=== PATIENT | female | born 1960 | race Caucasian/White ===

== ENCOUNTER → 2017-11-04 | Outpatient (CLI) | payer MEDICARE, MEDICAID ==
[2016-12-04 09:43] VITALS: BMI 32.0
[~2017-11-04] MED LIST: ALBU1.257 IH; ALPR-434 PO; AMLO-104 PO; AMLO-99 PO; AMOX-559 PO; B1/B1TAB PO; BENZ200C15 PO; BUDE10.2 INH; CEPH500T7 PO; CLO10 MT; CODE118S5 PO; CYCL10TA29 PO; ENOX100D5 SQ; ESOM40CA42 PO; FENT-19 TD; FENT-89 TD; FLUT1DIS28 IH; FOLI-68 PO; FURO-45 PO; HYDR-4305 PO; HYDR-4309 PO; HYDR-5517 PO; HYDR2TAB74 PO; IPRA3AMP21 IH; IPRA4AER IH; LEVO-85 PO; LISI20TA29 PO; NICO-218 TD; ONDA4TAB PO; OXYC-857 PO; OXYGENHOME INH; POTA-23 PO; PRAM1TAB22 PO; PRED20TA6 PO; PROM-110 PO; RIV10 PO; RIVA15TA PO; RIVA20TA PO; SUCR1ORA17 PO; TEMA7.5C14 PO; TRAZ-156 PO; TRIA-204 PO; WARF-1 PO; xarelto PO
--- NOTE | 2017-11-05 20:16 | RADIOLOGY IMAGING REPORT ---
[place] [facility] [place] NAME: DEBBIE VANG : [id number] MR: [id number] V: [id number] EXAM DATE: ORDERING PHYSICIAN: SHERIDAN SPANGLER TECHNOLOGIST: Keysha Vargas EXAMINATION:TWO-DIMENSIONAL ECHOCARDIOGRAPH REASON:Exertional Dyspnea 2D Measurements (normal values in centimeters) LV endLV endRV endVent.LV PostAorticLeftPercent DiastolicSystolicDiastolicSeptumWallRootAtriumShortening (3.5-5.7)(0.9-2.6)(0.6-1.1)(0.6-1.1)(2.0-3.7)(1.9-4.0)(25-35%) [id number] STROKE VOLUME: 42 ml ESTIMATED EJECTION FRACTION:64% PARASTERNAL LONG AXIS: Overall left ventricular function appears to be normal. Right ventricular function also appears to be normal. The TAPSE is measured at 2.1. No wall motion abnormalities are noted. Minimal aortic sclerosis is noted. Color examination of the valves in this view is unremarkable. PARASTERNAL SHORT AXIS: Overall left ventricular function is normal. No wall motion abnormalities are noted. The aortic valve is trileaflet in configuration and appears to open normally with minimal aortic sclerosis. No stenosis is noted. Color examination of the pulmonic valve is unremarkable. Color examination of the aortic valve is unremarkable. Color examination of the tricuspid valve revealed a trace of tricuspid insufficiency. APICAL FOUR AND TWO CHAMBER: Normal left ventricular ejection fraction. Chamber sizes all appear to be normal. The aortic valve area is measured within normal ranges at 2.5cm2. Mitral valve area is measured within normal ranges at 2.8cm2. Left atrial and right atrial volumes are measured within normal ranges at 20 and 16ml/m2. Trace of mitral insufficiency is noted. Trace of tricuspid insufficiency is noted. The tricuspid regurgitation Vmax is measured at 1.43m/sec. SUBCOSTAL VIEW: No pericardial effusion was noted. No atrioseptal or ventriculoseptal defects were appreciated but the view was somewhat technically difficult. Doppler examination of the mitral valve in diastole does reveal a normal pattern but there is reversal with Valsalva maneuver medial and lateral E prime velocities are mildly decreased. IVC is normal in size. OVERALL IMPRESSION: 1. Normal left ventricular ejection fraction of 64% with a Grade 1-2/4 decrease in diastolic function. 2. Normal chamber sizes. 3. A trileaflet aortic valve with mild aortic sclerosis but no stenosis and no insufficiency was noted. 4. A trace of mitral, tricuspid insufficiency with estimated right ventricular systolic pressures within normal ranges at 16mm Hg. No other abnormalities were noted. Dictated by: Esvin Phipps M.D. on 11/04/2017 at 20:15 Transcribed by: MICHELLE on 11/05/2017 at 15:40 Approved by: Esvin Phipps M.D. on 11/05/2017 at 20:15 [facility]
== END ==
LOC: US 01:29
PROVIDERS: ATTEND Internal Medicine Cardiovascular Disease
DX: I35.8 Other nonrheumatic aortic valve disorders (principal); I34.0 Nonrheumatic mitral (valve) insufficiency; I07.1 Rheumatic tricuspid insufficiency
CPT/HCPCS: 93306

== ENCOUNTER → 2017-11-26 | Outpatient (CLI) | payer MEDICARE, MEDICAID ==
[2016-12-04 09:43] VITALS: BMI 32.0
--- NOTE | 2017-11-26 13:38 | RADIOLOGY IMAGING REPORT ---
FACILITY: [facility] - [place] PATIENT NAME: Cecille Breen : 1960 MR: [id number] V: [id number] EXAM DATE: ORDERING PHYSICIAN: [facility] TECHNOLOGIST: Location: [facility] Patient: Cecille Breen : 1960 Visit/Account:[id number] Date of Sevice: 11/26/2017 LUMBAR SPINE COMP W/FLEX/EXT History: Chronic low back pain. Comparison study: None. Findings: There has been posterior fusion extending from L2 to L5 with bilateral metallic rods and b ilateral pedicle screws at each level. There has been intradiscal fusion at L2-3, L3-4 and L4-5. Th ere is residual spondylolisthesis at L3-4. There is been a laminectomy at L3 and L4. Discogenic degenerative changes above the multilevel fusion are most prominent at L1-2. There is a [employer] IVC filter that appears to lie in an infrarenal location. There are surgical clips in the right upper quadrant. The sacroiliac joints are unremarkable. Status post left total hip replacement. IMPRESSION: 1. Postoperative changes consistent with anterior posterior fusion from L2 to L5. Laminectomy at L3 and L4. 2. Discogenic degenerative changes at the level above the fusion L1-2. 3. This was left total hip replacement 4. IVC filter. Report Dictated By: Celio Mosley MD at 11/26/2017 1:30 PM Report E-Signed By: Celio Mosley MD at 11/26/2017 1:32 PM WSN:[id number]
== END ==
LOC: RAD 12:43
DX: G89.4 Chronic pain syndrome (principal); Z79.891 Long term (current) use of opiate analgesic; M62.40 Contracture of muscle, unspecified site; M79.1 Myalgia; M72.9 Fibroblastic disorder, unspecified; T30.0 Burn of unspecified body region, unspecified degree; F11.20 Opioid dependence, uncomplicated; M47.817 Spondylosis without myelopathy or radiculopathy, lumbosacral region; M96.1 Postlaminectomy syndrome, not elsewhere classified; M54.16 Radiculopathy, lumbar region; M54.5 Low back pain; M12.9 Arthropathy, unspecified; M51.37 Other intervertebral disc degeneration, lumbosacral region; M54.17 Radiculopathy, lumbosacral region; M54.32 Sciatica, left side
CPT/HCPCS: 72114

== ENCOUNTER → 2018-06-29 | Outpatient (CLI) | payer MEDICARE, MEDICAID ==
[2016-12-04 09:43] VITALS: BMI 32.0
[~2018-06-29] MED LIST changes: +AMLO-113 PO; -AMLO-99 PO; +IPRA3AMP10 IH; -IPRA3AMP21 IH; -TRAZ-156 PO; +TRAZ50TA34 PO
--- NOTE | 2018-06-29 16:39 | RADIOLOGY IMAGING REPORT ---
FACILITY: [facility] PATIENT NAME: Cecille Breen : 1960 MR: [id number] V: [id number] EXAM DATE: ORDERING PHYSICIAN: CECILIA PENNINGTON TECHNOLOGIST: Location: [facility] Patient: Cecille Breen : 1960 Visit/Account:[id number] Date of Sevice: 06/29/2018 Exam type: CHEST PA AND LAT History: COPD, cough and fever for several weeks Comparison: June 25, 2017. Findings: Right-sided pleural parenchymal scarring again noted.. There is no evidence of focal infiltrates, pl eural effusions or pulmonary edema. Cardiac silhouette is mildly enlarged. There are postsurgical c hanges of the lower cervical spine. IMPRESSION: 1. Pleural parenchyma scarring over the right thorax appears relatively unchanged Mild cardiomegaly unchanged Report Dictated By: Paty Vazquez MD at 06/29/2018 4:31 PM Report E-Signed By: Paty Vazquez MD at 06/29/2018 4:35 PM WSN:[email or web address]
== END ==
LOC: RAD 15:46
PROVIDERS: ATTEND Family Medicine
DX: J44.0 Chronic obstructive pulmonary disease with (acute) lower respiratory infection (principal); J94.8 Other specified pleural conditions
CPT/HCPCS: 71046

== ENCOUNTER 2019-03-08 05:11 | Emergency (ER) | payer MEDICARE, MEDICAID ==
[2016-12-04 09:43] VITALS: Wt 108.0 kg
[~2019-03-08 05:11] MED LIST changes: -FENT1PAT40 TD; -LISI-374 PO; -PRED50TA22 PO; +TRAZ50TA34 PO; -TRAZ50TA52 PO
--- NOTE | 2019-03-08 05:14 | ER Report ---
History and Physical Time Seen By MD: 05:13 (ANDREW MAURER DO) Time Seen By MD: 07:00 (JADON MCINTOSH DO) HPI/ROS CHIEF COMPLAINT: rapid heart rate; cough HISTORY OF PRESENT ILLNESS: PT states she was watching TV and felt her heart rate go fast. Took her pulse and it was in 120-130s .No chest pain. Pt said her pulse ox was also low. pt admits to having a cough. no fevers. Pt has been using albuterol for her cough. Pt has come in contact with people with bronchitis. + headache with the cough. Pt is a smoker. PT has hx of pe and has been taking her xeralto REVIEW OF SYSTEMS: Constitutional: No fever, no chills. Eyes: No discharge. ENT: No sore throat. Cardiovascular: No chest pain, + palpitations. Respiratory: + cough, + shortness of breath. Gastrointestinal: No abdominal pain, no vomiting. Genitourinary: No hematuria. Musculoskeletal: No back pain. Skin: No rashes. Neurological: + headache. (ANDREW MAURER DO) HPI/ROS Please see Dr. Maurer's note (JADON MCINTOSH DO) Allergies: Coded Allergies: clarithromycin (Verified Allergy, Mild, RASH, 03/08/19) azithromycin (Verified Allergy, Unknown, 03/08/19) doxycycline (Verified Allergy, Unknown, 03/08/19) hydrochlorothiazide (Verified Allergy, Unknown, 03/08/19) metoclopramide (Verified Allergy, Unknown, 03/08/19) Home Meds Active Scripts Promethazine Hcl (PROMETHAZINE HCL) 25 Mg Tablet, 25 MG PO Q6H for Nausea, #15 TAB 0 Refills Prov:BENJAMIN RICHEY MD 06/25/17 Ipratropium/Albuterol Sulfate (COMBIVENT RESPIMAT INHAL SPRAY) 4 Gm Aer.w.adap, 1 EACH IH QID, #3 INHALER 3 Refills Prov:TERI CARDOSO APRN 08/26/16 Amlodipine Besylate (AMLODIPINE BESYLATE) 10 Mg Tablet, 1 TAB PO QDAY, #90 TAB 3 Refills Prov:TERI CARDOSO APRN 07/29/16 Esomeprazole Magnesium (NEXIUM) 40 Mg Capsule.dr, 1 CAP PO QDAY, #90 CAP 2 Refills Prov:TERI CARDOSO APRN [employer]-C 06/24/16 Reported Medications Lisinopril (LISINOPRIL) 40 Mg Tablet, 40 MG PO QDAY, TAB 03/08/19 Fentanyl (Fentanyl) 1 Each Patch.td72, 75 MCG TD 03/08/19 Trazodone Hcl (TRAZODONE HCL) 50 Mg Tablet, 50 MG PO QHS 06/25/17 Rivaroxaban (XARELTO 10 MG TAB (OR EQUIV)) 10 Mg Tablet, 20 MG PO QDAY, TAB 01/03/17 B1/B2/Niacin/B12/Protease (B-Complex with B-12 Tablet) 1 Each Tablet, 1 TAB PO DAILY 07/28/15 Pramipexole Di-Hcl (MIRAPEX) 1 Mg Tablet, 1 MG PO DAILY 12/17/14 Discontinued Reported Medications Oxycodone Hcl/Acetaminophen 10-325 Mg (ENDOCET 10-325 MG TABLET) 1 Each Tablet, 1-2 TAB PO Q4-6H PRN for PAIN, #90 TAB 0 Refills 12/05/16 Discontinued Scripts Sucralfate (CARAFATE) 1 Gm/10 Ml Oral.susp, 1 GM PO QID, #500 ML 0 Refills Prov:BENJAMIN RICHEY MD 06/25/17 Fluticasone/Salmeterol (ADVAIR 250-50 DISKUS) 1 Each Disk.w.dev, 1 PUFF IH BID, #1 DISK 6 Refills Prov:KALPANA GARCIA MD 12/10/16 Fentanyl 50 Mcg Patch (FENTANYL 50 MCG PATCH) 1 Each Patch.td72, 1 EACH TD Q72H, #10 PATCH.72H 0 Refills May fill on or after 01/09/17 Prov:TERI CARDOSO APRN [employer]-C 10/29/16 Lisinopril (LISINOPRIL) 20 Mg Tablet, 20 MG PO QDAY, #90 TAB 2 Refills Prov:TERI CARDOSO APRNP-C 09/11/16 Past Medical/Surgical History pmhx: copd, htn, gerd, pe, dvt, chronic pain syndrome (LAURORA,ANDREW V DO) Hx Smoking: Yes (5-6 CIGS/DAY X 40 YRS) Smoking Status: Current: Every Day Smoker Exposure to Second Hand Smoke?: Yes Hx Substance Use Disorder: No Hx Alcohol Use: Yes (ANDREW MAURER DO) Constitutional Vital Sign - Last 24 Hours 03/08/19 03/08/19 03/08/19 03/08/19 05:11 05:12 05:30 06:11 Temp 98.1 Pulse 108 110 Resp 15 10 B/P (MAP) 141/93 (109) 141/93 138/94 (109) Pulse Ox 91 91 92 O2 Delivery Room Air 03/08/19 03/08/19 03/08/19 03/08/19 06:16 06:40 06:40 06:46 Pulse ??? 86 ??? Resp 18 Pulse Ox 94 O2 Delivery Nasal Cannula O2 Flow Rate 2.0 03/08/19 07:00 B/P (MAP) 119/72 (88) (JADON MCINTOSH DO) Physical Exam General Appearance: The patient is alert, has no immediate need for airway protection and no signs of toxicity. Eyes: Pupils equal and round no pallor or injection, EOMI ENT: no pharyngeal erythema or exudates, Mucous membranes are moist Respiratory: There are no retractions, + diffuse wheezing and rhonchi b/l Cardiovascular: + tachy. pulses are equal and symmetrical Gastrointestinal: Abdomen is soft and non tender, no masses, bowel sounds normal, no guarding, no rigidity or rebound Neurological: Cranial nerves II-XII grossly intact, no sensory or motor loss Skin: Warm and dry, no rashes. Musculoskeletal: Neck is supple non tender, no vertebral tenderness Extremities are nontender, +1 edema lower extremities, and have full range of motion. DIFFERENTIAL DIAGNOSIS: After history and physical exam differential diagnosis was considered for bronchitis, pneumonia, copd exacerbation, electrolyte abnl, chf (ANDREW MAURER DO) Physical Exam Please see Dr. Maurer's note (JADON MCINTOSH DO) Medical Decision Making Data Points Result Diagram: 03/08/1916 03/08/1916 Laboratory Hematology Test 03/08/19 07:16 Red Blood Count 5.40 M/uL (4.17-5.56) Mean Corpuscular Volume 68.0 fL (80.0-96.0) Mean Corpuscular Hemoglobin 21.6 pg (26.0-33.0) Mean Corpuscular Hemoglobin Concent 31.7 g/dL (32.0-36.0) Red Cell Distribution Width 18.1 % (11.5-14.5) Mean Platelet Volume 8.8 fL (7.2-11.1) Neutrophils (%) (Auto) 60.3 % (39.4-72.5) Lymphocytes (%) (Auto) 28.7 % (17.6-49.6) Monocytes (%) (Auto) 8.8 % (4.1-12.4) Eosinophils (%) (Auto) 1.5 % (0.4-6.7) Basophils (%) (Auto) 0.7 % (0.3-1.4) Nucleated RBC Relative Count (auto) 0.0 /100WBC Neutrophils # (Auto) 4.4 K/uL (2.0-7.4) Lymphocytes # (Auto) 2.1 K/uL (1.3-3.6) Monocytes # (Auto) 0.6 K/uL (0.3-1.0) Eosinophils # (Auto) 0.1 K/uL (0.0-0.5) Basophils # (Auto) 0.1 K/uL (0.0-0.1) Nucleated RBC Absolute Count (auto) 0.00 K/uL Sodium Level 136 mmol/L (137-145) Potassium Level 3.9 mmol/L (3.5-5.0) Chloride Level 104 mmol/L (98-107) Carbon Dioxide Level 27 mmol/L (22-31) Blood Urea Nitrogen 7 mg/dl (7-18) Creatinine 0.60 mg/dl (0.52-1.04) Glomerular Filtration Rate Calc > 60.0 Random Glucose 93 mg/dl (75-110) Calcium Level 8.6 mg/dl (8.4-10.2) Total Bilirubin 0.2 mg/dl (0.2-1.3) Aspartate Amino Transf (AST/SGOT) 22 U/L (0-35) Alanine Aminotransferase (ALT/SGPT) 27 U/L (0-56) Alkaline Phosphatase 105 U/L (0-126) Troponin I < 0.012 ng/ml B-Type Natriuretic Peptide 14 pg/ml (0-100) Total Protein 6.4 g/dl (6.3-8.2) Albumin 3.6 g/dl (3.5-5.0) Chemistry Test 03/08/19 07:16 White Blood Count 7.3 k/uL (4.5-11.0) Red Blood Count 5.40 M/uL (4.17-5.56) Hemoglobin 11.6 g/dL (12.0-16.0) Hematocrit 36.7 % (34.0-47.0) Mean Corpuscular Volume 68.0 fL (80.0-96.0) Mean Corpuscular Hemoglobin 21.6 pg (26.0-33.0) Mean Corpuscular Hemoglobin Concent 31.7 g/dL (32.0-36.0) Red Cell Distribution Width 18.1 % (11.5-14.5) Platelet Count 191 K/uL (150-450) Mean Platelet Volume 8.8 fL (7.2-11.1) Neutrophils (%) (Auto) 60.3 % (39.4-72.5) Lymphocytes (%) (Auto) 28.7 % (17.6-49.6) Monocytes (%) (Auto) 8.8 % (4.1-12.4) Eosinophils (%) (Auto) 1.5 % (0.4-6.7) Basophils (%) (Auto) 0.7 % (0.3-1.4) Nucleated RBC Relative Count (auto) 0.0 /100WBC Neutrophils # (Auto) 4.4 K/uL (2.0-7.4) Lymphocytes # (Auto) 2.1 K/uL (1.3-3.6) Monocytes # (Auto) 0.6 K/uL (0.3-1.0) Eosinophils # (Auto) 0.1 K/uL (0.0-0.5) Basophils # (Auto) 0.1 K/uL (0.0-0.1) Nucleated RBC Absolute Count (auto) 0.00 K/uL Glomerular Filtration Rate Calc > 60.0 Calcium Level 8.6 mg/dl (8.4-10.2) Total Bilirubin 0.2 mg/dl (0.2-1.3) Aspartate Amino Transf (AST/SGOT) 22 U/L (0-35) Alanine Aminotransferase (ALT/SGPT) 27 U/L (0-56) Alkaline Phosphatase 105 U/L (0-126) Troponin I < 0.012 ng/ml B-Type Natriuretic Peptide 14 pg/ml (0-100) Total Protein 6.4 g/dl (6.3-8.2) Albumin 3.6 g/dl (3.5-5.0) (JADON MCINTOSH DO) EKG/Imaging EKG Interpretation NSR @ 98 withno acute interval changes (ANDREW MAURER DO) ED Course/Re-evaluation Clinical Indication for ER IV: IV Access ED Course check labs, xray and start an hour long neb/solumedrol 03/08/2019 6:24:54 am labs delayed due to difficulty obtaining access (ANDREW MAURER DO) ED Course I assumed patient care from Dr. Maurer at shift change. Patient labs were collected. I reexamined the patient, lungs sounds were clear to auscultation. Patient reported significant improvement in symptoms. Will treat with 4 days prednisone. Return precautions were provided. Close PCP follow-up recommended. Patient was hemodynamically stable at time of discharge. Decision to Disposition Date: March 08, 2019 Decision to Disposition Time: 08:03 (JADON MCINTOSH DO) Depart Departure Latest Vital Signs Vital Signs Date Time Temp Pulse Resp B/P (MAP) Pulse Ox O2 Delivery O2 Flow Rate FiO2 03/08/19 07:00 119/72 (88) 03/08/19 06:46 ??? 03/08/19 06:40 18 03/08/19 06:40 94 Nasal Cannula 2.0 03/08/19 05:12 98.1 (JADON MCINTOSH DO) Impression: Primary Impression: Cough Additional Impression: Shortness of breath Condition: Improved Disposition: HOME OR SELF-CARE Referrals: SAUL RAMOS DO (PCP) New Scripts Prednisone (PREDNISONE) 50 Mg Tablet 50 MG PO QDAY for 4 Days, #4 TAB Prov: JADON MCINTOSH DO 03/08/19 Patient Instructions: Acute Cough (GEN) Additional Instructions: Please drink plenty of water. Please take one tablet of prednisone daily for 4 days. Please follow-up with your family doctor in the next 24-48 hours for reevaluation. Your chest x-ray showed no signs of pneumonia. Please return promptly if you develop worsening cough, increased shortness breath, change in sputum, inability to keep down food or fluids. Problem Qualifiers ANDREW MAURER V DO March 08, 2019 05:14 JADON MCINTOSH DO March 08, 2019 07:22
[2019-03-08] MEDS ORDERED: LISI-374 PO (05:26)
[2019-03-08] MEDS ORDERED: FENT1PAT40 TD (05:26)
[2019-03-08] MEDS ORDERED: METOPROLOL TART 5 MG/5 ML VIAL IVP ONE (05:35)
[2019-03-08] MEDS ORDERED: methylPREDNIS SUCC 125 MG/2ML IVP ONE (05:35)
[2019-03-08] MEDS ORDERED: IPRATROPIUM 0.5MG/2.5ML NEB NEB ONE (06:30)
[2019-03-08] MEDS ORDERED: ALBUTEROL 2.5 MG/0.5ML ER ONLY NEB ONE (06:30)
--- NOTE | 2019-03-08 06:35 | RADIOLOGY IMAGING REPORT ---
FACILITY: [facility] [place] PATIENT NAME: Cecille Breen : 1960 MR: [id number] V: [id number] EXAM DATE: ORDERING PHYSICIAN: ANDREW MAURER TECHNOLOGIST: [place] [facility] [place] Cecille Breen : 1960 Visit/Account:[id number] Date of Sevice: 03/08/2019 EXAMINATION: Chest radiographs 2 views HISTORY: Cough. COMPARISON: Chest radiographs from 06/25/2017 and 06/29/2018. FINDINGS: PA and lateral views of the chest are submitted. Lines/tubes: None. Lungs/pleura: There is mild pleural parenchymal scarring at the right lung base, similar to prior ex ams. There is no new consolidation or pleural effusion. Heart: Negative. Mediastinum: Negative. Bony structures/body wall: Fusion hardware in the lower cervical spine. IMPRESSION: 1. No radiographic evidence of acute cardiopulmonary disease. 2. Mild pleural parenchymal scarring at the right lung base is unchanged. Report Dictated By: Meme Acuna MD at 03/08/2019 6:28 AM Report E-Signed By: Meme Acuna MD at 03/08/2019 6:31 AM WSN:[id number]
[2019-03-08 07:23] LABS: PLATELET COUNT, AUTOMATED 191 K/uL (150-450)
[2019-03-08 08:00] VITALS: BP 100/65
[2019-03-08] MEDS ORDERED: PRED50TA22 PO (08:05)
--- NOTE | 2019-03-08 13:41 | EKG ---
[place] [facility] [place] NAME: DEBBIE VANG : [id number] MR: [id number] V: [id number] EXAM DATE: ORDERING PHYSICIAN: ANDREW MAURER TECHNOLOGIST: Test Reason : Blood Pressure : / mmHG Vent. Rate : 098 BPM Atrial Rate : 098 BPM P-R Int : 166 ms QRS Dur : 086 ms QT Int : 372 ms P-R-T Axes : 057 054 051 degrees QTc Int : 474 ms Normal sinus rhythm Normal ECG When compared with ECG of 03-JAN-2017 18:07, No significant change was found Confirmed by AUBRIE LOGAN ([id number]) on 03/08/2019 8:30:28 PM Referred By: Confirmed By:AUBRIE LOGAN
== END 2019-03-08 08:15 | disposition home or self-care (01) ==
LOC: ER 05:16
DX: R05 Cough (principal); R06.02 Shortness of breath
CPT/HCPCS: 36415; 71046; 83880; 84484; 85025; 93005; 94640; 96374; 96375; 99284; J2930; J7611; J7644; 82040; 82247; 82310; 82374; 82435; 82565; 82947; 84075; 84132; 84155; 84295; 84450; 84460; 84520

== ENCOUNTER → 2019-03-08 | Outpatient (CLI) | payer MEDICARE ==
[2016-12-04 09:43] VITALS: BMI 32.0
[~2019-03-08] MED LIST changes: -AMLO-113 PO; +AMLO-127 PO; +FENT1PAT40 TD; -HYDR-4305 PO; -HYDR-4309 PO; +HYDR-627 PO; +HYDR-653 PO; +LISI-374 PO; +PRED50TA22 PO; -TRAZ50TA34 PO; +TRAZ50TA52 PO
== END ==
LOC: AMB 04:50
PROVIDERS: ATTEND Nurse Practitioner
DX: R00.0 Tachycardia, unspecified (principal); Z79.01 Long term (current) use of anticoagulants
CPT/HCPCS: A0425; A0427